=== PATIENT | male | born 1950 | race Caucasian/White ===

== ENCOUNTER 2018-07-31 07:46 | Day surgery (SDC) | payer OTHER ==
[~2018-07-31] VITALS: Ht 177.8 cm; Wt 81.6 kg
[2018-07-31] MEDS ORDERED: TRI48 PO (08:56)
[2018-07-31] MEDS ORDERED: ATOR10TA PO (08:56)
[2018-07-31] MEDS ORDERED: METF500T PO (08:56)
[2018-07-31] MEDS ORDERED: LIDOCAINE 2% 100 MG/5 ML UJET TP ONE (09:06)
[2018-07-31] MEDS ORDERED: KETOROLAC 30 MG/ML VIAL ONE (09:06)
== END 2018-07-31 10:12 | disposition home or self-care (01) ==
LOC: MMU 07:46 → MDS 07:46
PROVIDERS: ATTEND Internal Medicine Gastroenterology
DX: K62.7 Radiation proctitis (principal); Y84.2 Radiological procedure and radiotherapy as the cause of abnormal reaction of the patient, or of later complication, without mention of misadventure at the time of the procedure; Y73.8 Miscellaneous gastroenterology and urology devices associated with adverse incidents, not elsewhere classified; E11.9 Type 2 diabetes mellitus without complications; E78.5 Hyperlipidemia, unspecified; Z79.899 Other long term (current) drug therapy; Z85.048 Personal history of other malignant neoplasm of rectum, rectosigmoid junction, and anus; Z85.46 Personal history of malignant neoplasm of prostate; Z98.890 Other specified postprocedural states
CPT/HCPCS: 45330; 82948; J1885